=== PATIENT | female | born 1985 | race Caucasian/White ===

== ENCOUNTER 2025-06-10 08:56 | Emergency (ER) | payer MEDICAID ==
[~2025-06-10] VITALS: Ht 177.8 cm; Wt 78.2 kg
--- NOTE | 2025-06-10 09:05 | Physician Documentation ---
History of Present Illness ~ General Stated Complaint: ANXIETY Time Seen by MD: 08:57 History of Present Illness Initial Comments 40-year-old female presents to the ED with a complaint of acute onset 3/10 chest pain/ weakness with numbness and tingling in her bilateral upper extremities. Denies any shortness the breath. States that she had a recent medication change to her bupropion and was placed on lisinopril for hypertension. Denies any nausea vomiting radiating chest pain. Per EMS EKG was reassuring and she would not be criteria for an strokes scale. Appears anxious during initial interview Patient states that during the initial episode she felt as though her mouth was dry Review of Systems All Other Systems at this time: Reviewed and Negative ROS As stated above in the HPI, otherwise all systems are reviewed and negative. Physical Exam Physical Exam Physical Exam General: Alert, no apparent distress. HEENT: PERRL, EOMI, no injection, moist mucous membranes. Neck: Full range of motion. Respiratory: Lungs clear, no respiratory distress. Chest: No accessory muscle use. Cardiovascular: Regular rate and rhythm, no murmurs. Gastrointestinal: Soft, nontender, nondistended. Bowels sounds present. Extremities: Normal range of motion, no deformity. Neurologic: Oriented x4. Psychiatric: Normal mood and affect. Skin: Normal color, warm and dry. No edema, no ecchymosis. Progress Results/Orders Results/Orders Orders - AGUILA WALTER SENIOR SOFTWARE SYSTEMS ENGINEER Chest,Single View (06/10/25 09:16) Monitor (06/10/25 09:16) Saline Lock (06/10/25 09:16) Oxygen (06/10/25 09:16) Completed Orders - AGUILA WALTER SENIOR SOFTWARE SYSTEMS ENGINEER Chest,Single View (06/10/25 09:16) Cbc/Diff (06/10/25 09:16) BMP (06/10/25 09:16) PBNP (06/10/25 09:16) Hs Troponin I W Calculations (06/10/25 09:16) Electrocardiogram (06/10/25 ) Vital Signs 06/10/25 06/10/25 06/10/25 09:02 09:06 10:20 Pulse 78 67 Resp 16 14 B/P (MAP) 129/100 123/72 Pulse Ox 99 92 97 O2 Delivery Room Air* O2 Flow Rate 0 0 FiO2 21 Laboratory Tests Test 06/10/25 09:06 White Blood Count 6.9 Red Blood Count 5.35 Hemoglobin 15.7 Hematocrit 46.4 H Mean Corpuscular Volume 86.7 Mean Corpuscular Hemoglobin 29.4 Mean Corpuscular Hemoglobin Concent 33.9 Red Cell Distribution Width 13.2 Platelet Count 243 Mean Platelet Volume 8.6 Neutrophils (%) (Auto) 49.1 Lymphocytes (%) (Auto) 43.3 Monocytes (%) (Auto) 5.4 Eosinophils (%) (Auto) 0.9 Basophils (%) (Auto) 1.3 H Neutrophils # (Auto) 3.4 Lymphocytes # (Auto) 3.0 Monocytes # (Auto) 0.4 Eosinophils # (Auto) 0.1 Basophils # (Auto) 0.1 CBC Comment Sodium Level 137 Potassium Level 4.3 Chloride Level 103 Carbon Dioxide Level 27.8 Anion Gap 6 L Blood Urea Nitrogen 15 Creatinine 0.94 H Estimated GFR/1.73 m2 65 BUN/Creatinine Ratio 16.0 Glucose Level 104 Calcium Level 9.1 Troponin I High Sensitivity 5 Pro-B-Type Natriuretic Peptide 94 Albumin 4.1 Chemistry Comments Medical Decision Making Additional information obtaine: old records Findings Patient's labs are very reassuring as was her EKG and her chest x-ray per my interpretation. EKG showed no signs ectopy ST-elevation or depression and there was a normal sinus rhythm x-ray showed no signs of opacities or consolidation. Advised the patient of my findings and indicated that her symptoms were likely secondary to anxiety or a panic attack. At this time we are going to discharge her so she can go back to [facility] Differential Diagnosis re Departure Disposition: 01 HOME / SELF CARE / HOMELESS Impression: Primary Impression: Anxiety Condition: Stable Discharge Instructions: Managing Anxiety, Adult Referrals: NO PRIMARY CARE PROVIDER (PCP) Signature Scribe Signature: r Attestation: Scribed for Aguila Walter Capacity Analyst by Aguila Irizarry NP . 06/10/25 13:55 AGUILA WALTER NP Jun 10, 2025 09:05
[2025-06-10 09:38] LABS: MEAN PLATELET VOLUME 8.6 FL (7.4-10.4); RED CELL DISTRIBUTION WIDTH 13.2 % (11.5-14.5)
--- NOTE | 2025-06-10 09:40 | RADIOLOGY REPORT ---
CHEST RADIOGRAPH Indication: CP Technique: Single frontal view of the chest was obtained COMPARISON: None FINDINGS: Lines and Tubes: None Lungs: Clear Pleura: No effusion. No pneumothorax. Cardiomediastinal contours: Unremarkable Bones: Unremarkable IMPRESSION: No acute disease.
[2025-06-10 09:41] LABS: CREATININE 0.94 MG/DL (0.40-0.90); PRO BRAIN NATRIURETIC PEPTIDE 94 PG/ML (0-125); TOTAL CARBON DIOXIDE 27.8 MMOL/L (24-32); eCRCL 84 ML/MIN; eGFR 65 ML/MIN
[2025-06-10 10:20] VITALS: BP 123/72; PULSE 67; RESP 14; O2SAT 97
--- NOTE | 2025-06-10 11:42 | ELECTROCARDIOGRAPH REPORT ---
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 Negrito Nicholas Measurements Intervals Gepp Rate: 80 P: 68 NC: 114 QRS: 47 QRSD: 99 T: 62 QT: 380 QTc: 439 Interpretive Statements Sinus rhythm Borderline short NC interval Probable left atrial enlargement RSR' in V1 or V2, right VCD or RVH Electronically Signed On 06-11-2025 18:48:[address] Negrito Nicholas Please click the below link to view image of tracing.
== END 2025-06-10 10:23 | disposition home or self-care (01) ==
LOC: ER 08:57
DX: F41.9 Anxiety disorder, unspecified (principal); I10 Essential (primary) hypertension
CPT/HCPCS: 36415; 71045; 80048; 83880; 84484; 85025; 93005; 99285